=== PATIENT | male | born 1965 | race African-American/Black ===

== ENCOUNTER 2022-07-27 11:52 | Outpatient (CLI) | payer OTHER, MEDICAID ==
[2022-07-27 13:10] LABS: Hemoglobin 12.3 g/dL (13.5-17.5); Mean Corpuscular HGB CONC 32.7 g/dL (32.0-36.0); Mean Corpuscular Hemoglobin 29.4 pg (27.0-33.0); Mean Corpuscular Volume 89.7 fl (81.2-95.1); Mean Platelet Volume 9.5 fl (7.4-10.4); Platelet Count 211 10x3/uL (150-450); RBC Distribution Width 13.2 % (11.5-14.5); Red Blood Cell (RBC) Count 4.19 10x6/uL (4.32-5.72); White Blood Cell (WBC) Count 6.4 10x3/uL (3.5-10.5)
[2022-07-27 13:29] LABS: Anion Gap 16 mmol/L (10-20); BUN (Urea Nitrogen) 51 mg/dL (8.4-25.7); Calc. Creatinine Clearance 0 mL/min (70-130); Calcium 9.6 mg/dL (7.8-10.44); Carbon Dioxide 19 mmol/L (22-29); Chloride 106 mmol/L (98-107); Estimated GFR 27; Glucose 178 mg/dL (70-105); Potassium 4.7 mmol/L (3.5-5.1); Sodium 136 mmol/L (136-145)
== END 2022-07-27 11:53 | disposition home or self-care (01) ==
LOC: CSHLAB 11:52
PROVIDERS: ATTEND Podiatrist Foot & Ankle Surgery
DX: Z01.812 Encounter for preprocedural laboratory examination (principal); M21.611 Bunion of right foot
CPT/HCPCS: 80048; 85027

== ENCOUNTER → 2022-08-03 | Day surgery (SDC) | payer OTHER, MEDICAID ==
[2022-08-01 16:05] VITALS: BMI 32.5
== END ==
LOC: CSHSDC 09:38
PROVIDERS: ATTEND Podiatrist Foot & Ankle Surgery
DX: M20.11 Hallux valgus (acquired), right foot (principal); M25.571 Pain in right ankle and joints of right foot; Z53.9 Procedure and treatment not carried out, unspecified reason; Z79.899 Other long term (current) drug therapy; E11.65 Type 2 diabetes mellitus with hyperglycemia; E11.42 Type 2 diabetes mellitus with diabetic polyneuropathy; E78.2 Mixed hyperlipidemia; I25.10 Atherosclerotic heart disease of native coronary artery without angina pectoris; I11.0 Hypertensive heart disease with heart failure; E11.21 Type 2 diabetes mellitus with diabetic nephropathy; I50.9 Heart failure, unspecified; E55.9 Vitamin D deficiency, unspecified; Z79.82 Long term (current) use of aspirin; Z94.1 Heart transplant status

== ENCOUNTER 2022-08-17 10:15 | Day surgery (SDC) | payer OTHER, MEDICAID ==
[2022-08-15 14:14] VITALS: BMI 32.5
[2022-08-17] MEDS ORDERED: PROPOFOL 20 ML ONE (12:31)
[2022-08-17] MEDS ORDERED: Bupivacaine PF 0.5% 30 ML VIAL ONE (12:48)
[2022-08-17] MEDS ORDERED: CEFAZOLIN 2 GM VIAL ONE (12:55)
[2022-08-17] MEDS ORDERED: Ketorolac Tromethamine 30 MG/ML VIAL ONE (13:18)
[2022-08-17] MEDS ORDERED: Fentanyl 100 MCG/2 ML VIAL ONE (13:50)
[2022-08-17] MEDS ORDERED: PHENYLEPHRINE-NS 100 MCG/ML 10 ML SYRINGE ONE (14:07)
== END 2022-08-17 16:40 | disposition home or self-care (01) ==
LOC: CSHSDC 10:15
PROVIDERS: ATTEND Podiatrist Foot & Ankle Surgery
PROC: 0QSN04Z Reposition Right Metatarsal with Internal Fixation Device, Open Approach (ICD-10-PCS; principal; 2022-08-17)
DX: M20.11 Hallux valgus (acquired), right foot (principal); M25.571 Pain in right ankle and joints of right foot; I13.0 Hypertensive heart and chronic kidney disease with heart failure and stage 1 through stage 4 chronic kidney disease, or unspecified chronic kidney disease; N18.30 Chronic kidney disease, stage 3 unspecified; I50.22 Chronic systolic (congestive) heart failure; I25.10 Atherosclerotic heart disease of native coronary artery without angina pectoris; E11.40 Type 2 diabetes mellitus with diabetic neuropathy, unspecified; E66.9 Obesity, unspecified; E55.9 Vitamin D deficiency, unspecified; I25.5 Ischemic cardiomyopathy; E78.5 Hyperlipidemia, unspecified; Z79.899 Other long term (current) drug therapy; Z88.8 Allergy status to other drugs, medicaments and biological substances; Z68.31 Body mass index [BMI] 31.0-31.9, adult; Z79.84 Long term (current) use of oral hypoglycemic drugs
CPT/HCPCS: 28295; 73620; 82962; C1713 ×2; C1776; 36416; J1885; J2704; J3010; S0020

== ENCOUNTER 2022-12-05 12:02 | Emergency (ER) | payer OTHER, MEDICAID ==
[2022-12-05 12:54] LABS: #Monocytes 1.2 10x3/uL (0.0-1.1); #Neutrophils 10.5 10x3/uL (1.5-8.4); %Basophils 0.2 % (0.0-2.0); %Lymphocytes 8.8 % (18.0-47.0); %Monocytes 9.3 % (0.0-10.0); %Neutrophils 80.7 % (40.0-75.0); Hemoglobin 11.1 g/dL (13.5-17.5); Mean Corpuscular HGB CONC 31.7 g/dL (32.0-36.0); Mean Corpuscular Hemoglobin 29.2 pg (27.0-33.0); Mean Corpuscular Volume 92.1 fl (81.2-95.1); Mean Platelet Volume 11.8 fl (7.4-10.4); Platelet Count 167 10x3/uL (150-450); RBC Distribution Width 14.4 % (11.5-14.5)
[2022-12-05 13:06] LABS: INR-International Normal Ratio 1.2; PTT 23.9 sec (22.0-33.0); Prothrombin Time 12.4 sec (9.5-12.1)
[2022-12-05 13:12] LABS: ALT (SGPT) 630 U/L (8-55); AST (SGOT) 873 U/L (5-34); Albumin 4.7 g/dL (3.5-5.0); Alkaline Phosphatase 74 U/L (40-110); Anion Gap 27 mmol/L (10-20); BUN (Urea Nitrogen) 106 mg/dL (8.4-25.7); Calc. Creatinine Clearance 0 mL/min (70-130); Calcium 9.7 mg/dL (7.8-10.44); Carbon Dioxide 12 mmol/L (22-29); Chloride 99 mmol/L (98-107); Estimated GFR 11; Globulin 3.5 g/dL (2.4-3.5); Glucose 259 mg/dL (70-105); Magnesium 2.5 mg/dL (1.6-2.6); Potassium 5.7 mmol/L (3.5-5.1); Protein, Total 8.2 g/dL (6.0-8.3); Sodium 132 mmol/L (136-145)
[2022-12-05 13:43] LABS: CKMB 4.5 ng/mL (0-6.6)
[2022-12-05] MEDS ORDERED: Aspirin Chewable 81 MG TAB ONE (13:43)
[2022-12-05] MEDS ORDERED: Vancomycin 1 GM VIAL ONE (13:43)
[2022-12-05] MEDS ORDERED: Cefepime 2 GM VIAL ONE (13:43)
[2022-12-05 14:14] LABS: Actual Bicarbonate (HCO3v) 12.7 mEq/L (22-28); Base Excess -14.3 mEq/L (-2 - +2); Chloride (VBG) 100 mmol/L (98-106); Hematocrit-VBG 36 % (42.0-52.0); Hemoglobin (Hb) 12.1 g/dL (13.1-17.2); Potassium (VBG) 6.37 mmol/L (3.70-5.30); Puncture Site Other Site; RapidComm Collect By LAB; Sodium 134.1 mmol/L (133-146); pH (venous) 7.199 (7.32-7.43)
[2022-12-05] MEDS ORDERED: Sodium Bicarb 5 MEQ/10 ML Abboject 4.2% SYRINGE ONE ×2 (14:57)
[2022-12-05] MEDS ORDERED: Insulin Regular 300 UNITS/3 ML VIAL ONE (14:58)
[2022-12-05] MEDS ORDERED: INSULIN REGULAR IN 0.9 % NACL 100 UNITS/100 ML BAG ONE (15:14)
[2022-12-05 15:49] LABS: Actual Bicarbonate (HCO3v) 8.3 mEq/L (22-28); Base Excess -16.1 mEq/L (-2 - +2); Calcium, Ionized (venous) 0.99 mmol/L (1.16-1.32); Chloride (VBG) 103 mmol/L (98-106); Hematocrit-VBG 37 % (42.0-52.0); Hemoglobin (Hb) 12.6 g/dL (13.1-17.2); Puncture Site Other Site; RapidComm Collect By LAB; Sodium 131.7 mmol/L (133-146); pH (venous) 7.284 (7.32-7.43)
[2022-12-05] MEDS ORDERED: Calcium Chloride 1 GM/10 ML Abboject SYRINGE ONE (15:50)
[2022-12-05 16:02] LABS: Lactic Acid 7.9 mmol/L (0.5-2.2)
[2022-12-05 17:09] LABS: SARS-CoV-2 NAA Rapid Test Not Detected (NotDetected)
== END 2022-12-05 17:40 | disposition short-term general hospital (02) ==
LOC: CSHERS 12:02
DX: A41.9 Sepsis, unspecified organism (principal); R65.21 Severe sepsis with septic shock; N17.9 Acute kidney failure, unspecified; I11.0 Hypertensive heart disease with heart failure; I50.9 Heart failure, unspecified; I21.4 Non-ST elevation (NSTEMI) myocardial infarction; E11.10 Type 2 diabetes mellitus with ketoacidosis without coma; Z20.822 Contact with and (suspected) exposure to COVID-19
CPT/HCPCS: 71045; 82010; 82553; 82805; 82962; 83605; 83735; 83880; 84484; 85610; 85730; 93005; 94760; U0002; 36415; 36416; 80053; 84443; 85025; 96365; 96366; 96368; 96375; J0692; J1815; J3370